=== PATIENT | female | born 1965 | race African-American/Black ===

== ENCOUNTER 2017-10-29 12:02 | Emergency (ER) | payer MEDICAID ==
[~2017-10-29] VITALS: Ht 162.6 cm; Wt 106.0 kg
[2017-10-29 13:24] VITALS: BP 113/56
== END 2017-10-29 13:27 | disposition home or self-care (01) ==
LOC: ER 12:12
DX: R07.89 Other chest pain (principal); I10 Essential (primary) hypertension; F31.9 Bipolar disorder, unspecified; F17.210 Nicotine dependence, cigarettes, uncomplicated
CPT/HCPCS: 93005; 99283